=== PATIENT | male | born 1975 | race African-American/Black ===

== ENCOUNTER 2019-09-24 23:20 | Emergency (ER) | payer SELFPAY ==
[~2019-09-24] VITALS: Ht 162.6 cm; Wt 77.1 kg
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
--- NOTE | 2019-09-25 00:01 | NUR ---
PATIENT WILLING TO COOPERATE WITH STAFF.
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
--- NOTE | 2019-09-25 00:15 | NUR ---
Patient discharged to home in stable condition. Written and verbal after care instructions given. Patient verbalizes understanding of instruction.
[2019-09-25 01:12] VITALS: BP 127/73
== END 2019-09-25 01:14 | disposition home or self-care (01) ==
LOC: ER 23:20
DX: S62.611A Displaced fracture of proximal phalanx of left index finger, initial encounter for closed fracture (principal); S62.393A Other fracture of third metacarpal bone, left hand, initial encounter for closed fracture; X58.XXXA Exposure to other specified factors, initial encounter; Y93.89 Activity, other specified; Y92.89 Other specified places as the place of occurrence of the external cause; Y99.8 Other external cause status
CPT/HCPCS: 29125; 73110; 73130; 99284; L3763